=== PATIENT | male | born 1970 | race Caucasian/White ===

== ENCOUNTER 2023-11-20 17:13 | Outpatient (CLI) | payer BC, SELFPAY ==
--- NOTE | 2023-11-20 17:30 | MR_ITS ---
[address] [address] Phone:?[phone] Fax:?[phone] Referring Physician Information: Vin Eldridge M.D. [id number] [facility] [address] Phone:?[phone] Fax:?[phone] Patient:Arleth Deutsch D.O.B:?1970 Sex:?Male Phone:?[phone] [facility] MRN:?[id number] Exam Date:?11/20/2023 EXAM: MRI OF THE LEFT KNEE CLINICAL INFORMATION: The patient is a 53-year-old with left knee pain. Evaluate for medial meniscal tear. PRIOR SURGERY: None reported. COMPARISON STUDIES: There are no prior studies available for comparison. TECHNICAL INFORMATION: Imaging was performed on a high-field, 1.5 Alexandrea MR scanner. Axial proton-density and STIR imaging of the left knee was produced in addition to sagittal proton-density and sagittal STIR imaging. Coronal proton- density and coronal STIR imaging was performed. Pulse sequences were modified to reduce artifact arising from the patient's metallic implants. FINDINGS: Articular/Extraarticular collections: Effusion: Moderate. Low signal intensity debris within the joint space can be seen, in keeping with synovitis. Small loose bodies within the joint space cannot be excluded. Popliteal cyst: None. Subcutaneous and extraarticular soft tissues: Within normal limits. Osseous structures: Postsurgical changes can be seen involving the patella, in keeping with prior extensor mechanism repair or patellar fracture fixation. No definite evidence for acute bony injury of the patella is identified, however there is cortical irregularity, subcortical cystic change, and subcortical edema along the articular surfaces, in keeping with chondromalacia and chondral loss discussed below. Additionally, a prominent area of marrow edema can be seen along the central and medial aspects of the femoral trochlea on axial series 4 image 12, also in keeping with chondromalacia and chondral loss described below. No other bony abnormalities about the knee are seen. Ligamentous structures: ACL: Intact and normal in appearance. PCL: Intact and normal in appearance. MCL: Intact and normal in appearance. LCL: Intact and normal in appearance. Posterolateral corner: Intact and normal in appearance. Posteromedial corner: No posteromedial corner soft tissue injury. Semimembranosus and pes anserine tendons demonstrate no tendinopathy or associated bursitis. Extensor mechanism/Patellar retinacular structures: Patellar tendon: Thickening of the proximal and mid portions of the patellar tendon can be seen, in keeping with postsurgical change or residual tendinosis. No definite evidence for well-defined tearing is seen. Quadriceps tendon: Thickening of the distal quadriceps tendon can be seen, in keeping with postsurgical change or residual tendinosis. No definite evidence for transverse tearing is identified. Retinacula: The medial and lateral retinacula are intact. The medial patellofemoral ligament is intact. Medial compartment: Medial meniscus: No evidence for medial meniscal tearing can be seen. There is no evidence for parameniscal cyst formation. No meniscocapsular separation injury is identified. Medial femoral condyle: Grade II chondromalacia can be seen along the central and lateral weightbearing surfaces of the medial femoral condyle. No full- thickness chondral defects are seen. Medial tibial plateau: No chondromalacia, chondral defect, or osteochondral abnormality. Lateral compartment: Lateral meniscus: No evidence for lateral meniscal tearing is present. No evidence for parameniscal cyst formation can be seen. Lateral femoral condyle: No chondromalacia, chondral defect, or osteochondral abnormality. Lateral tibial plateau: No chondromalacia, chondral defect, or osteochondral abnormality. Patellofemoral compartment: Patella: Broad-based areas of full-thickness chondral loss can be seen involving the patellar apex and adjacent portions of the medial and lateral patellar facets on axial series 4 image 9 and on sagittal series 5 image 23. The area of chondral loss measures approximately 33 mm in mediolateral dimension and 20 mm in craniocaudal dimension. Underlying bony changes are present. Trochlea: Broad-based, full-thickness chondral loss can be seen involving the central and medial articular surfaces of the femoral trochlea seen on axial series 4 image 11 and on sagittal series 6 image 19. Underlying bony changes are seen. The area of chondral loss measures 13 mm in mediolateral dimension and 15 mm in craniocaudal dimension. Neurovascular: No definite neurovascular abnormalities are seen. CONCLUSION: 1. 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 2. No well-defined medial or lateral meniscal tearing is seen. 3. Postsurgical changes of the patella and extensor mechanism as described above. No evidence for extensor mechanism disruption is seen. 4. Moderate knee joint effusion with synovitis and/or small loose bodies. 5. The cruciate and collateral ligaments appear intact. AEC Electronically signed on 11/21/2023 9:17:00 AM by Amish Westfall M.D.
== END 2023-11-20 17:14 | disposition home or self-care (01) ==
LOC: MRI 17:14
PROVIDERS: Visit Provider Orthopaedic Surgery
DX: M25.562 Pain in left knee (principal); M94.262 Chondromalacia, left knee; M25.462 Effusion, left knee; S83.242A Other tear of medial meniscus, current injury, left knee, initial encounter
CPT/HCPCS: 73721